=== PATIENT | male | born 1990 ===

== ENCOUNTER 2017-12-29 16:43 | Emergency (ER) | payer BC, OTHER ==
[2017-12-29 17:03] VITALS: BP 114/62; PULSE 63; RESP 16; TEMP 98.3; O2SAT 100
--- NOTE | 2017-12-29 17:45 | ED PDOC ---
Lower Extremity Pain/Injury Time Seen by Provider: 12/29/17 17:43 Chief Complaint (Nursing): Lower Extremity Problem/Injury Chief Complaint (Provider): Muscle Strain History Per: Patient History/Exam Limitations: no limitations Onset/Duration Of Symptoms: Days (2) Current Symptoms Are (Timing): Still Present Severity: Mild Pain Scale Rating Of: 2 - Risk Factors DVT Risk Factors: Pos: None Past Medical History Vital Signs: Last Vital Signs Temp 98.3 F 12/29/17 16:58 Pulse 63 12/29/17 16:58 Resp 16 12/29/17 16:58 BP 114/62 12/29/17 16:58 Pulse Ox 100 12/29/17 16:58 - Medical History PMH: No Chronic Diseases - Family History Family History: States: No Known Family Hx - Home Medications Home Medications: Ambulatory Orders Medication Instructions Recorded Cyclobenzaprine [Flexeril] 10 mg PO TID #27 tab 12/29/17 Review of Systems Musculoskeletal: Positive for: Leg Pain, Other (myalgia to left upper leg; dorsal) Physical Exam - Reviewed Nursing Documentation Reviewed: Yes Vital Signs Reviewed: Yes - Physical Exam Appears: Positive for: Well, No Acute Distress Pulses-Carotid (L): 2+ Pulses-Carotid (R): 2+ Pulses-Dorsalis Pedis (L): 2+ Pulses-Dorsalis Pedis (R): 2+ Pulses-Post. Tibialis (L): 2+ Pulses-Post. Tibialis (R): 2+ Pulses-Radial (L): 2+ Pulses-Radial (R): 2+ Extremity: Positive for: Normal ROM, Tenderness, Other (dorsal side of left leg at gluteus is painful after doing leg swing exercises yesterday) - ECG O2 Sat by Pulse Oximetry: 100 Medical Decision Making Medical Decision Making: I: hamstring pull; strained muscle P: discharge, referr to sports ortho for direrected athletich care wrap, heat and rest Disposition - Clinical Impression Clinical Impression: Hamstring muscle strain, Muscle strain - Patient ED Disposition Is Patient to be Admitted: No - Disposition Referrals: Joel Jin MD [Non-Staff] - Disposition: Routine/Home Disposition Time: 18:56 Condition: GOOD Prescriptions: Cyclobenzaprine [Flexeril] 10 mg PO TID #27 tab Instructions: Lower Extremity Muscle Strain (DC), Hamstring Muscle Strain (DC) Forms: [facility] ([place]ovenian)
== END 2017-12-29 18:27 | disposition home or self-care (01) ==
LOC: H.ER 16:43
DX: S76.312A Strain of muscle, fascia and tendon of the posterior muscle group at thigh level, left thigh, initial encounter (principal); X50.9XXA Other and unspecified overexertion or strenuous movements or postures, initial encounter; Y92.89 Other specified places as the place of occurrence of the external cause